=== PATIENT | female | born 1960 | race Two or more races ===

== ENCOUNTER 2024-03-19 10:00 | Outpatient (RCR) | payer MEDICAID, SELFPAY ==
--- NOTE | 2024-03-12 14:59 | PT.OIERPT ---
PT OP Initial Eval Patient Information Outpatient Physical Therapy Treatment Date: 03/12/24 Visit Reasons: Cerebrovascular accident Medical Diagnosis: I63.89 Treatment Dx #1: Right Side Weakness Start of Care: 03/12/24 Date of Onset: Jan 2024 Smoking Status Smoking Status: Never smoker Initial Assessment Subjective: Pt is a 63 y/o female reports of right side weakness s/p left CVA ~ 1 month ago. Pt was admitted to [facility]. Pt mention she continues to have residual weakness on her right side. Pt has mild limitation with walking, standing, chores, self care, balance, and performing recreational activities. Objective: Right UE AROM: all motions are WFL Right UE MMTs: grossly 4-/5 Right LE AROM: all motions are WFL Right LE MMTs: grossly 3+/5 Configuration Management Advisor Strength: 65 lbs bilaterally Assessment: Pt demonstrate mild right side paresis s/p CVA leading to difficulty with ADLs. Pt will benefit from physical therapy to increase strength, mobility, and work on conditioning Short Term and Windows Laptop Technician Goals 1) Increase right UE MMTs grossly to 4/5 in 6 wks to be able to perform lifting activities 2) Increase right LE MMTs grossly to 4-/5 in 6 wks to be able to perform recreational activities 3) Indep with HEP Treatment Plan 1) Manual Therapy 2) Therapeutic Activities 3) Therapeutic Exercises 4) Balance Training 5) Gait Training Frequency and Duration: 2 x wk for 6 wks Certification Dates: 03/12/24 to 06/12/24 Procedure Charges OP PT Eval Mod Complex 30 minutes: Yes
--- NOTE | 2024-03-17 13:05 | PT.ODAYNRPT ---
PT Outpatient Daily Note OP Daily Note Outpatient Physical Therapy Treatment Date: 03/17/24 Visit Reasons: Cerebrovascular accident Subjective: Pt able to start lightly cooking. Pt notice her speech still slightly affected. Objective: Please see flow chart for list of ther ex performed Assessment: tolerate exercises with minimal pain Plan: Continue with PT Length of Time (minutes) of Treatment: 30 Minutes Procedure Charges Therapeutic Exercise 30 minutes: Yes
--- NOTE | 2024-03-19 10:37 | PT.ODAYNRPT ---
PT Outpatient Daily Note OP Daily Note Outpatient Physical Therapy Treatment Date: 03/19/24 Visit Reasons: Cerebrovascular accident Subjective: Pt feels really good. Pt is cooking more each day. Objective: Please see flow chart for list of ther ex performed Assessment: difficulty with SLB exercises due to decrease balance in stance; cues to FOREST MANAGEMENT TEACHER with improved form and body and fender mechanic apprentice Plan: Continue with PT Length of Time (minutes) of Treatment: 30 Minutes Procedure Charges Therapeutic Exercise 30 minutes: Yes
== END 2024-03-27 23:59 | disposition home or self-care (01) ==
LOC: CPTX 10:00
PROVIDERS: PCP Student in an Organized Health Care Education/Training Program; Referring Provider Student in an Organized Health Care Education/Training Program; Visit Provider Student in an Organized Health Care Education/Training Program
DX: I69.351 Hemiplegia and hemiparesis following cerebral infarction affecting right dominant side (principal); R26.2 Difficulty in walking, not elsewhere classified; R26.89 Other abnormalities of gait and mobility
CPT/HCPCS: 97110; 97162

== ENCOUNTER 2024-04-06 10:30 | Outpatient (RCR) | payer MEDICAID, SELFPAY ==
--- NOTE | 2024-03-29 10:59 | PT.ODAYNRPT ---
PT Outpatient Daily Note OP Daily Note Outpatient Physical Therapy Treatment Date: 03/29/24 Visit Reasons: Cerebrovascular accident Subjective: Pt was able to cook a whole thanksgiving meal. Pt still notice balance deficits and right LE instability with certain activities. Objective: Please see flow chart for list of ther ex performed Assessment: continue to have slight difficulty with balance exercises due to right LE instability and weakness. Plan: Continue with PT Length of Time (minutes) of Treatment: 30 Minutes Procedure Charges Therapeutic Exercise 30 minutes: Yes
--- NOTE | 2024-03-31 13:17 | PT.ODAYNRPT ---
PT Outpatient Daily Note OP Daily Note Outpatient Physical Therapy Treatment Date: 03/31/24 Visit Reasons: Cerebrovascular accident Subjective: No new complaints. Objective: Please see flow sheet for ther ex list. Assessment: Continued with functional strengthening interventions. Pt able to perform squat exercise with no [employer] PAINTER. Plan: Continue with POC. Length of Time (minutes) of Treatment: 30 Minutes Procedure Charges Therapeutic Exercise 30 minutes: Yes
--- NOTE | 2024-04-06 11:41 | PTNOTE_ITS ---
PT Outpatient Daily Note OP Daily Note Outpatient Physical Therapy Treatment Date: 04/06/24 Visit Reasons: Cerebrovascular accident Subjective: No new complaints or concerns. Pt reports noticing some progress in strength. Objective: Please see flow sheet for ther ex list. Assessment: Progressing strengthening interventions for both R UE and R LE as per pt tolera nce. Plan: Request additional visit. Length of Time (minutes) of Treatment: 30 Minutes Procedure Charges Therapeutic Exercise 30 minutes: Yes
== END 2024-04-27 23:59 | disposition home or self-care (01) ==
LOC: CPTX 10:30
PROVIDERS: PCP Student in an Organized Health Care Education/Training Program; Referring Provider Student in an Organized Health Care Education/Training Program; Visit Provider Student in an Organized Health Care Education/Training Program
DX: I69.351 Hemiplegia and hemiparesis following cerebral infarction affecting right dominant side (principal); R26.2 Difficulty in walking, not elsewhere classified; R26.89 Other abnormalities of gait and mobility
CPT/HCPCS: 97110

== ENCOUNTER 2024-05-26 10:30 | Outpatient (RCR) | payer MEDICAID, SELFPAY ==
--- NOTE | 2024-05-04 10:46 | PTNOTE_ITS ---
PT OP Progress/Discharge Note Date of Service: 05/04/24 Progress Note/DC Note Progress Note/Discharge Note: Progress Note Patient Information Visit Reasons: Cerebrovascular accident Medical Diagnosis: I63.89 Treatment Dx #1: Right Side Weakness Service Continue Service or Discharge: Continue Service Certification Date Certification Dates: 05/04/24 to 08/02/24 Status Subjective: Pt is doing much better. Pt mentioned she started cooking, cleaning, and performing chores with less limitation. Pt still has decrease endurance and imbalance with certain tasks. Pt will like to complete her authorized sessions to work on strength and balance. Objective: Right UE AROM: all motions are WNL Right UE MMTs: grossly 4/5 Right LE AROM: all motions are WNL Right LE MMTs: grossly 4-/5 Assessment: Pt progress with right side weakness and able to start light ADLs, chores, and a mbulate with less limitation. Pt has not met set goals and will continue to benefit from physical therapy to increase mobility, strength, and work on balance. Plan: Continue with PT/POC and add 8 sessions (2 x wk for 4 wks) Procedure Charges Therapeutic Exercise 30 minutes: Yes
--- NOTE | 2024-05-07 09:48 | PT.ODAYNRPT ---
PT Outpatient Daily Note OP Daily Note Outpatient Physical Therapy Treatment Date: 05/07/24 Visit Reasons: Cerebrovascular accident Subjective: Pt feeling better and balance is slowly improving. Objective: Please see flow chart for list of ther ex performed Assessment: improving with dynamic balance. increase resistance with hip exercises with good tolerance Plan: Continue with PT Length of Time (minutes) of Treatment: 30 Minutes Procedure Charges Therapeutic Exercise 30 minutes: Yes
--- NOTE | 2024-05-11 11:44 | PT.ODAYNRPT ---
PT Outpatient Daily Note OP Daily Note Outpatient Physical Therapy Treatment Date: 05/11/24 Visit Reasons: Cerebrovascular accident Subjective: Pt notice her balance and strength is improving. No new concerns at this time. Objective: Please see flow chart for list of ther ex performed Assessment: progressing with SLB and tandem walking with improved dynamic balance and less use of hands for support. Plan: Continue with PT Length of Time (minutes) of Treatment: 30 Minutes Procedure Charges Therapeutic Exercise 30 minutes: Yes
--- NOTE | 2024-05-14 13:29 | PT.ODAYNRPT ---
PT Outpatient Daily Note OP Daily Note Outpatient Physical Therapy Treatment Date: 05/14/24 Visit Reasons: Cerebrovascular accident Subjective: Pt still feels unsteady and weakness in her legs. Overall arm is improving and now cooking with less difficulty Objective: Please see flow chart for list of ther ex performed Assessment: improved SLB balance with less use of hands to balance. Good form with shoulder 4 way using GTB Plan: Continue with PT Length of Time (minutes) of Treatment: 30 Minutes Procedure Charges Therapeutic Exercise 30 minutes: Yes
--- NOTE | 2024-05-19 10:36 | PT.ODAYNRPT ---
PT Outpatient Daily Note OP Daily Note Outpatient Physical Therapy Treatment Date: 05/19/24 Visit Reasons: Cerebrovascular accident Subjective: No new concerns or complaints. Objective: Please see flow sheet for ther ex list. Assessment: Continued with focus on restoring functional strength, pt tolerated them well. Plan: Continue with POC. Length of Time (minutes) of Treatment: 30 Minutes Procedure Charges Therapeutic Exercise 30 minutes: Yes
--- NOTE | 2024-05-21 11:02 | PT.ODAYNRPT ---
PT Outpatient Daily Note OP Daily Note Outpatient Physical Therapy Treatment Date: 05/21/24 Visit Reasons: Cerebrovascular accident Subjective: Pt feels good and balance is improving. Objective: Please see flow chart for list of ther ex performed Assessment: improved tandem walking with less imbalance and use of hands for support. Pt still exhibit gastroc weakness while performing SL heel raise where patient is unable to completely work through the ROM Plan: Continue with PT Length of Time (minutes) of Treatment: 30 Minutes Procedure Charges Therapeutic Exercise 30 minutes: Yes
== END 2024-05-28 23:59 | disposition home or self-care (01) ==
LOC: CPTX 10:30
PROVIDERS: PCP Student in an Organized Health Care Education/Training Program; Referring Provider Student in an Organized Health Care Education/Training Program; Visit Provider Student in an Organized Health Care Education/Training Program
DX: I69.351 Hemiplegia and hemiparesis following cerebral infarction affecting right dominant side (principal); R26.2 Difficulty in walking, not elsewhere classified; R26.89 Other abnormalities of gait and mobility
CPT/HCPCS: 97110

== ENCOUNTER 2024-06-16 09:30 | Outpatient (RCR) | payer MEDICAID, SELFPAY ==
--- NOTE | 2024-06-02 09:50 | PTNOTE_ITS ---
PT Outpatient Daily Note OP Daily Note Outpatient Physical Therapy Treatment Date: 06/02/24 Visit Reasons: Cerebrovascular accident Subjective: Pt's right foot continues to feel unstable or notice balance deficits. Objective: Please see flow chart for list of ther ex performed Assessment: tactile cue and physical support needed from therapist with airex balance ex ercises today to prevent falls and swaying. In tandem stance on airex patient exhibit right foot instability with increase ankle inversion when assuming the position Plan: Continue with PT Length of Time (minutes) of Treatment: 30 Minutes Procedure Charges Therapeutic Exercise 30 minutes: Yes
--- NOTE | 2024-06-08 12:33 | PT.ODAYNRPT ---
PT Outpatient Daily Note OP Daily Note Outpatient Physical Therapy Treatment Date: 06/08/24 Visit Reasons: Cerebrovascular accident Subjective: Pt feels good today no new concerns to report. Objective: Please see flow chart for list of ther ex performed Assessment: improved heel toe walking with less balance deficits and improved ankle control. Pt is progressing with dynamic and static balance exercises with less use of hands/fingers Plan: Continue with PT Length of Time (minutes) of Treatment: 30 Minutes Procedure Charges Therapeutic Exercise 30 minutes: Yes
--- NOTE | 2024-06-10 10:20 | PT.ODAYNRPT ---
PT Outpatient Daily Note OP Daily Note Outpatient Physical Therapy Treatment Date: 06/10/24 Visit Reasons: Cerebrovascular accident Subjective: Pt's balance is better. Pt is feeling more condifence with uneven surfaces Objective: Please see flow chart for list of ther ex performed Assessment: improved tandem walking going backward with less sway. Pt is progressing with overall dynamic balance Plan: Continue with PT Length of Time (minutes) of Treatment: 30 Minutes Procedure Charges Therapeutic Exercise 30 minutes: Yes
--- NOTE | 2024-06-16 10:52 | PT.ODAYNRPT ---
PT Outpatient Daily Note OP Daily Note Outpatient Physical Therapy Treatment Date: 06/16/24 Visit Reasons: Cerebrovascular accident Subjective: Pt feels much better and balance is improving. At this time Pt feels comfortable being release after her last session. Objective: Please see flow chart for list of ther ex performed Assessment: improved dynamic balance and ankle control with all balance exercises Plan: Continue with PT Length of Time (minutes) of Treatment: 30 Minutes Procedure Charges Therapeutic Exercise 30 minutes: Yes
--- NOTE | 2024-07-14 15:53 | PT.ODS1RPT ---
PT OP Progress/Discharge Note Date of Service: 07/14/24 Progress Note/DC Note Progress Note/Discharge Note: DC Note Patient Information Visit Reasons: Cerebrovascular accident Service Discharge Date: 07/14/24 Status Assessment: Pt has been seen for 17 visits (eval + 16 visits). Pt last treated on 07/14/24 and no showed 06/28/24 appt. Pt has been contact regarding follow up appts without success. At this time Pt will be d/c from care due to non-compliance per attendance policy. Pt did not meet set goals in therapy; thank you for your referrals.
== END 2024-06-25 23:59 | disposition home or self-care (01) ==
LOC: CPTX 09:30
PROVIDERS: PCP Student in an Organized Health Care Education/Training Program; Referring Provider Student in an Organized Health Care Education/Training Program; Visit Provider Student in an Organized Health Care Education/Training Program
DX: I69.354 Hemiplegia and hemiparesis following cerebral infarction affecting left non-dominant side (principal); R26.2 Difficulty in walking, not elsewhere classified; R26.89 Other abnormalities of gait and mobility
CPT/HCPCS: 97110